=== PATIENT | female | born 1990 | race Caucasian/White ===

== ENCOUNTER 2021-09-02 17:05 | Emergency (ER) | payer SELFPAY ==
[~2021-09-02] VITALS: Ht 170.2 cm; Wt 62.0 kg
[2021-09-02] MEDS ORDERED: ONDANSETRON HCL 4MG/2ML INJ IV ONE (17:30)
[2021-09-02] MEDS ORDERED: MORPHINE SULFATE 4 MG/ML CPJ (NOT FOR IM USE) IV ONE (17:30)
[2021-09-02] MEDS ORDERED: PROPOFOL 200MG/20ML VIAL IV ONE (19:30)
[2021-09-02] MEDS ORDERED: KETAMINE HCL 50 MG/ML 10ML IV ONE (19:30)
[2021-09-02] MEDS ORDERED: ONDANSETRON HCL 4MG/2ML INJ IV STA (20:22)
[2021-09-02] MEDS ORDERED: MORPHINE SULFATE 4 MG/ML CPJ (NOT FOR IM USE) IV STA (20:22)
[2021-09-02] MEDS ORDERED: SODIUM CHLORIDE 0.9% 1,000 ML IV ONE (20:30)
[2021-09-03] MEDS ORDERED: T3 PO (00:32)
[2021-09-03] MEDS ORDERED: IBUP-2029 MT (00:32)
[2021-09-03 04:00] VITALS: BP 108/63
== END 2021-09-03 04:00 | disposition home or self-care (01) ==
LOC: ER 17:18
DX: S52.592A Other fractures of lower end of left radius, initial encounter for closed fracture (principal); W18.39XA Other fall on same level, initial encounter; Y93.89 Activity, other specified; Y92.89 Other specified places as the place of occurrence of the external cause; Y99.8 Other external cause status; Z98.890 Other specified postprocedural states
CPT/HCPCS: 24650; 73110; 73562; 96361; 96374; 96376; 99152; 99285; J2270; J2405; J2704; J3490; J7030; L1830